=== PATIENT | female | born 1995 | race Caucasian/White ===

== ENCOUNTER 2025-06-04 08:44 | Emergency (ER) | payer BC, OTHER ==
[~2025-06-04] VITALS: Ht 175.3 cm; Wt 70.3 kg
[2025-06-04 08:50] VITALS: BP 120/79; TEMP 98.5; O2SAT 98
[2025-06-04 09:51] LABS: MONOTEST NEGATIVE (NEGATIVE)
== END 2025-06-04 09:24 | disposition home or self-care (01) ==
LOC: ER 08:55
DX: J02.9 Acute pharyngitis, unspecified (principal)
CPT/HCPCS: 36415; 86308-TC; 87070-TC

== ENCOUNTER 2025-06-19 07:42 | Emergency (ER) | payer BC, OTHER ==
[~2025-06-19] VITALS: Ht 175.3 cm; Wt 68.0 kg
[2025-06-19 07:51] VITALS: BP 137/85; TEMP 98.4
[2025-06-19] MEDS ORDERED: METH4TAB3 PO (08:05)
[2025-06-19 08:09] VITALS: O2SAT 99
== END 2025-06-19 08:09 | disposition home or self-care (01) ==
LOC: ER 07:50
DX: J02.9 Acute pharyngitis, unspecified (principal); F32.A Depression, unspecified; R53.83 Other fatigue; R53.81 Other malaise; Z60.2 Problems related to living alone